=== PATIENT | female | born 1985 | race Caucasian/White ===

== ENCOUNTER 2018-07-18 13:32 | Emergency (ER) | payer MEDICAID, OTHER ==
[2018-07-18 13:52] LABS: Bilirubin Negative (Negative); Blood, Urine Negative (Negative); Clarity Slightly Cloudy (Clear); Glucose, Urine (Dipstick) Negative (Negative); Leukocyte Trace (Negative); Nitrite Negative (Negative); Protein, Urine (Dipstick) Trace mg/dL (Neg-Trace); Urobilinogen 0.2 mg/dL (0.2-1.0); pH, Urine 5.5 (5.0-9.0)
[2018-07-18 13:53] LABS: Specific Gravity, Urine 1.028 (1.002-1.036)
[2018-07-18 13:55] LABS: Bacteria/HPF 3+ HPF (None Seen); RBC/HPF 0-3 HPF (0-3)
[2018-07-18 14:36] LABS: #Basophils 0.1 thou/uL (0.0-0.2); #Eosinphils 0.1 thou/uL (0.0-0.7); #Lymphocytes 2.5 thou/uL (1.20-3.40); #Monocytes 0.7 thou/uL (0.11-0.59); #Neutrophils 6.1 thou/uL (1.40-6.50); %Basophils 1.2 % (0.0-1.0); %Eosinophils 0.6 % (0.0-10.0); %Lymphocytes 26.8 % (21.0-51.0); %Monocytes 7.2 % (0.0-10.0); %Neutrophils 64.2 % (42.0-75.0); Hemoglobin 13.5 g/dL (12.0-16.0); Mean Corpuscular HGB CONC 33.3 g/dL (32.0-36.0); Mean Corpuscular Hemoglobin 30.7 pg (27.0-31.0); Mean Corpuscular Volume 92.1 fL (78.0-98.0); Mean Platelet Volume 9.9 fL (7.4-10.4); Platelet Count 250 thou/uL (130-400); Red Blood Cell (RBC) Count 4.42 mill/uL (4.20-5.40); White Blood Cell (WBC) Count 9.5 thou/uL (4.8-10.8)
--- NOTE | 2018-07-18 15:58 | ULT ---
PELVIC ULTRASOUND 07/18/18 HISTORY: female with pelvic pain, right abdominal pain. TECHNIQUE: Multiplanar qureshi scale sonographic imaging of the pelvis obtained with transabdominal imaging. Ovarie s are assessed with color flow and spectral analysis. FINDINGS: The uterus measures 10.5 x 5.6 x 5.0 cm. An intrauterine gestational sac is present. A pole is noted with a crown-rump length of 1.1 cm, correlating with a 7 week, 2 day gestation. heart rat e is 149 beats per minute. Right ovary measures 3.1 x 2.2 x 2.9 cm and demonstrates normal blood flow without evidence for mass. Left ovary measures 2.6 x 1.9 x 2.4 cm and demonstrates normal blood flow without evidence for mass. Gestational sac diameter of 2.8 cm correlates with a 7 week, 6 day gestat ion. Average aged based on ultrasound of 7 weeks, 4 days with an estimated date of delivery on 03/02/19. No free pelvic fluid is seen. IMPRESSION: Single intrauterine gestation as above. No abnormalities are noted. POS: [facility]
== END 2018-07-18 16:24 | disposition home or self-care (01) ==
LOC: SCSER 13:32
DX: O20.9 Hemorrhage in early pregnancy, unspecified (principal); O99.89 Other specified diseases and conditions complicating pregnancy, childbirth and the puerperium; R10.31 Right lower quadrant pain; Z3A.01 Less than 8 weeks gestation of pregnancy
CPT/HCPCS: 36415; 76856; 81003; 81015; 84702; 85025; 86900; 86901; 90384; 93976; 96372